=== PATIENT | male | born 1965 | race Caucasian/White ===

== ENCOUNTER 2022-06-21 13:20 | Emergency (ER) | payer OTHER ==
[2022-06-21 14:47] LABS: HEMOGLOBIN 9.9 gm/dl (14.0-17.5); RED BLOOD COUNT 2.88 M/UL (4.20-5.50); WHITE BLOOD COUNT 12.5 K/UL (4.5-11.0)
[2022-06-21 15:16] LABS: BUN/CREATININE RATIO 7 (0-10)
== END 2022-06-21 17:59 | disposition home or self-care (01) ==
LOC: ER1 13:20
PROVIDERS: Physician Assistant
DX: J02.9 Acute pharyngitis, unspecified (principal); R42 Dizziness and giddiness; Z20.822 Contact with and (suspected) exposure to COVID-19
CPT/HCPCS: 70450; 70491; 80053; 82550; 82553; 84484; 85025; 85610; 85730; 87081; 87880; 93005; 99284; Q9967; U0002